=== PATIENT | male | born 1970 | race Caucasian/White ===

== ENCOUNTER 2022-06-30 14:21 | Day surgery (SDC) | payer OTHER ==
[2022-06-30] MEDS ORDERED: LIDOCAINE HCL 2% 100 MG/5 ML IJ ONE (14:22)
[2022-06-30] MEDS ORDERED: Versed 2 MG/2 ML Injection ONE (16:23)
[2022-06-30] MEDS ORDERED: DIPRIVAN 200 MG/20 ML IV ONE (16:48)
[2022-06-30] MEDS ORDERED: Lactated Ringers 1,000 ML IV ONE (17:30)
--- NOTE | 2022-06-30 19:58 | XRAY ---
Indication: Bilateral L4-S1 MBB. Intraoperative fluoroscopy provided for 7 seconds. Single digital spot image submitted for interpretation demonstrates posterior needle tips projecting over the expected left and right L4-S1 nerve roots. Correlate with intraoperative findings/report.
--- NOTE | 2022-07-01 08:46 | XRAY ---
7 seconds of fluoroscopy was used in surgery for a bilateral L4-S1 MBB.
== END 2022-06-30 17:15 | disposition home or self-care (01) ==
LOC: SDC-PAIN 14:21
PROVIDERS: ATTEND Psychiatry & Neurology Pain Medicine
DX: M47.816 Spondylosis without myelopathy or radiculopathy, lumbar region (principal); Z79.899 Other long term (current) drug therapy
CPT/HCPCS: 64493; 64494; 72020; 77002; J2250; J2704